=== PATIENT | male | born 1985 | race Caucasian/White ===

== ENCOUNTER → 2020-05-16 10:31 | Outpatient (CLI) | payer OTHER, SELFPAY ==
[2020-05-16 11:16] LABS: Influenza A - CEPHEID Flu A NEGATIVE (NEGATIVE); Influenza B - CEPHEID Flu B NEGATIVE (NEGATIVE)
[2020-05-16 11:35] LABS: COVID19 -Nasal RAPID Negative (Negative)
== END ==
PROVIDERS: Visit Provider Physician Assistant
DX: Z20.822 Contact with and (suspected) exposure to COVID-19 (principal); R11.10 Vomiting, unspecified
CPT/HCPCS: 87502; 87635

== ENCOUNTER → 2020-05-16 11:02 | Outpatient (CLI) | payer OTHER, SELFPAY | PROVIDERS: Referring Provider Physician Assistant; Visit Provider Physician Assistant | DX: R10.31 Right lower quadrant pain (principal) ==

== ENCOUNTER 2020-08-01 12:09 | Emergency (ER) | payer OTHER, SELFPAY ==
[2020-08-01 12:24] VITALS: BP 142/90; PULSE 68; RESP 16; TEMP 36.9; O2SAT 99; BMI 23.1
--- NOTE | 2020-08-01 12:26 | DI.RAD.S_ITS ---
PROCEDURE: XR CHEST 1V INDICATIONS: fall trauma TECHNIQUE: One view of the chest was acquired. COMPARISON: None. FINDINGS: Surgical changes and devices: None. Lungs and pleura: Lungs are clear. No pleural effusions or pneumothorax. Mediastinum: Mediastinal contours appear normal. Heart size is normal. Bones and chest wall: No suspicious bony lesions. Overlying soft tissues appear unremarkable. IMPRESSION: No evidence acute pulmonary process. Dictated by: Artemio Merlos M.D. on 08/01/2020 at 13:00 Approved by: Artemio Merlos M.D. on 08/01/2020 at 13:01
--- NOTE | 2020-08-01 12:26 | DI.CT.S_ITS ---
PROCEDURE: CT HEAD/BRAIN WO CON INDICATIONS: fall +LOC TECHNIQUE: Noncontrast 4.5 mm thick angled axial sections acquired from the foramen magnum to the vertex, with coronal and sagittal reformats. For radiation dose reduction, the following was used: automated exposure control, adjustment of mA and/or kV according to patient size. COMPARISON: None. FINDINGS: Image quality: Excellent. CSF spaces: Basal cisterns are patent. No extra-axial fluid collections. Ventricles are normal in size and shape. Brain: No midline shift. No intracranial masses or hemorrhage. Dasilva-white matter interface is normal. Skull and face: Calvarium and visualized facial bones are intact, without suspicious lesions. Sinuses: Visualized sinuses and mastoids are clear. IMPRESSION: No CT evidence of acute intracranial pathology. No skull fracture. Dictated by: Clifton Jay M.D. on 08/01/2020 at 12:02 Approved by: Clifton Jay M.D. on 08/01/2020 at 12:02
--- NOTE | 2020-08-01 12:26 | DI.RAD.S_ITS ---
PROCEDURE: XR SHOULDER LT MIN 2V INDICATIONS: fall pain TECHNIQUE: 5 views of the shoulder were acquired. COMPARISON: None. FINDINGS: Bones: No fractures or dislocations. No suspicious bony lesions. Visualized ribs appear intact. Soft tissues: No suspicious soft tissue calcifications. IMPRESSION: No evidence acute bony abnormality of the left shoulder. If clinical suspicion and/or symptoms persist, further assessment with repeat plain films, or advanced imaging (e.g., CT, MRI, or bone scan) may be helpful for further assessment. Dictated by: Artemio Merlos M.D. on 08/01/2020 at 13:01 Approved by: Artemio Merlos M.D. on 08/01/2020 at 13:02
--- NOTE | 2020-08-01 12:29 | DI.CT.S_ITS ---
PROCEDURE: CT CERVICAL SPINE WO CON INDICATIONS: fall trauma TECHNIQUE: Noncontrast 3 mm thick sections acquired from the skull base to the T4 level. Sagittal and coronal reformats were then constructed. For radiation dose reduction, the following was used: automated exposure control, adjustment of mA and/or kV according to patient size. COMPARISON: None. FINDINGS: Image quality: Excellent. Bones: No fractures or dislocations. Visualized superior ribs are intact. Mild degenerative endplate changes are noted at C5-6 and C6-7 levels. Soft tissues: Prevertebral soft tissues are normal in thickness. No paravertebral hematomas. No apical pneumothoraces. IMPRESSION: No acute cervical spine fracture or dislocation. Mild degenerative disc disease at C5-6 and C6-7 levels. Dictated by: Clifton Jay M.D. on 08/01/2020 at 11:57 Approved by: Clifton Jay M.D. on 08/01/2020 at 11:59
--- NOTE | 2020-08-01 13:28 | ED.FALL ---
HPI - Fall General Chief Complaint: Trauma Stated Complaint: hit head, fall at work, neck tenderness Time Seen by Provider: 08/01/20 12:26 Source: patient Mode of arrival: Ambulatory Limitations: no limitations History of Present Illness HPI Narrative: Patient is a 35-year-old male who presents after a fall off the boat possibly 6 ft. He landed on his left side had positive LOC. He is not on any anti-platelet or anticoagulation medications. Complaining of headache and left shoulder pain. He denies any nausea vomiting numbness tingling or weakness. He is ambulatory after the event. He was actually seen initially at the walk-in clinic and sent to the ED for further evaluation. Related Data Previous Rx's Medication Instructions Recorded promethazine 25 mg tablet 25 mg PO Q6H PRN #20 tab 05/16/20 Review of Systems Review of Systems ROS Unobtainable: All systems reviewed & are unremarkable except as noted in HPI and below Constitutional Constitutional: Denies chills, Denies fever(s), Denies lethargy and Denies weakness Eyes Eyes: Denies blurry vision and Denies diplopia Cardiovascular Cardiovascular: Denies chest pain, Denies irregular heart rhythm, Denies lightheadedness, Denies palpitations, Denies dyspnea, Denies dyspnea on exertion and Denies orthopnea Respiratory Respiratory: Denies cough, Denies dyspnea, Denies dyspnea on exertion and Denies wheezing Musculoskeletal Musculoskeletal: Denies back pain and Reports arthralgias (Left shoulder) Integumentary/Breasts Skin/Breast: Denies pruritus, Denies erythema, Denies rash and Denies wounds Neurologic Neurologic: Denies weakness Comments: +LOC Endocrine Endocrine: Denies palpitations Allergic/Immunologic Allergic/Immunologic: Denies wheezing Patient History Medical History No active medical problems Social History Smoking Status: Unknown if ever smoked Smoking Status: Unknown if ever smoked Exam Initial Vital Signs Initial Vital Signs: Vital Signs Temperature 98.4 F 08/01/20 12:24 Pulse Rate 68 08/01/20 12:24 Respiratory Rate 16 08/01/20 12:24 Blood Pressure 142/90 H 08/01/20 12:24 Pulse Oximetry 99 08/01/20 12:24 GENERAL: Well-appearing, well-nourished and in no acute distress. HEENT: Head normocephalic, left parietal abrasion noted no laceration, EOMI, pupils reactive, face symmetric, NECK: Supple, full range of motion, no step-offs, nontender on vertebrae-collar placed in ED CARDIOVASCULAR: Regular rate and rhythm without murmurs, rubs or gallops. RESPIRATORY: Breath sounds equal bilaterally, no wheezes rales or rhonchi. No crepitations, no subcutaneous air, chest is nontender, no signs of trauma ABDOMEN: Soft, nontender. Normoactive bowel sounds all 4 quadrants. No guarding or rebound. BACK: Nontender vertebrae, no step-offs, no contusions PELVIS: stable. EXTREMITIES: Normal range of motion, no clubbing or edema. Right upper extremity: Within normal limits Left upper extremity: Tender over shoulder and clavicle but clavicle has no step-offs. He actually seems to be more tender over the scapula area Right lower extremity: Within normal limits Left lower extremity:Within normal limits NEUROLOGICAL: Cranial nerves II through XII grossly intact. Normal gait and speech. SKIN: Abrasion left shoulder Scores GCS [place] coma scale eye opening: Spontaneous [place] coma scale verbal response: Orientated [place] coma scale motor response: Obey commands [place] coma scale total score: 15 Course Orders Ordered: ED Orders 08/01/20 12:26 CT head/brain wo con Stat XR chest 1V Stat XR shoulder LT min 2V Stat 08/01/20 12:29 CT cervical spine wo con Stat Vital Signs Vital signs: Vital Signs - 8 hr 08/01/20 12:24 08/01/20 13:51 Temperature 98.4 F Pulse Rate 68 70 Respiratory Rate 16 16 Blood Pressure 142/90 H 152/81 H Pulse Oximetry 99 99 MDM - Fall Imaging Data CT scan - head: Radiologist's Impression: PROCEDURE: CT HEAD/BRAIN WO CON INDICATIONS: fall +LOC TECHNIQUE: Noncontrast 4.5 mm thick angled axial sections acquired from the foramen magnum to the vertex, with coronal and sagittal reformats. For radiation dose reduction, the following was used: automated exposure control, adjustment of mA and/or kV according to patient size. COMPARISON: None. FINDINGS: Image quality: Excellent. CSF spaces: Basal cisterns are patent. No extra-axial fluid collections. Ventricles are normal in size and shape. Brain: No midline shift. No intracranial masses or hemorrhage. Dasilva-white matter interface is normal. Skull and face: Calvarium and visualized facial bones are intact, without suspicious lesions. Sinuses: Visualized sinuses and mastoids are clear. IMPRESSION: No CT evidence of acute intracranial pathology. No skull fracture. Dictated by: Clifton Jay M.D. on 08/01/2020 at 12:02 CT - cervical spine: Radiologist's Impression: PROCEDURE: CT CERVICAL SPINE WO CON INDICATIONS: fall trauma TECHNIQUE: Noncontrast 3 mm thick sections acquired from the skull base to the T4 level. Sagittal and coronal reformats were then constructed. For radiation dose reduction, the following was used: automated exposure control, adjustment of mA and/or kV according to patient size. COMPARISON: None. FINDINGS: Image quality: Excellent. Bones: No fractures or dislocations. Visualized superior ribs are intact. Mild degenerative endplate changes are noted at C5-6 and C6-7 levels. Soft tissues: Prevertebral soft tissues are normal in thickness. No paravertebral hematomas. No apical pneumothoraces. IMPRESSION: No acute cervical spine fracture or dislocation. Mild degenerative disc disease at C5-6 and C6-7 levels. Dictated by: Clifton Jay M.D. on 08/01/2020 at 11:57 Extremity x-ray #1: Radiologist's Impression: PROCEDURE: XR SHOULDER LT MIN 2V INDICATIONS: fall pain TECHNIQUE: 5 views of the shoulder were acquired. COMPARISON: None. FINDINGS: Bones: No fractures or dislocations. No suspicious bony lesions. Visualized ribs appear intact. Soft tissues: No suspicious soft tissue calcifications. IMPRESSION: No evidence acute bony abnormality of the left shoulder. If clinical suspicion and/or symptoms persist, further assessment with repeat plain films, or advanced imaging (e.g., CT, MRI, or bone scan) may be helpful for further assessment. Dictated by: Artemio Merlos M.D. on 08/01/2020 at 13:01 Chest x-ray: Radiologist's Impression: ROCEDURE: XR CHEST 1V INDICATIONS: fall trauma TECHNIQUE: One view of the chest was acquired. COMPARISON: None. FINDINGS: Surgical changes and devices: None. Lungs and pleura: Lungs are clear. No pleural effusions or pneumothorax. Mediastinum: Mediastinal contours appear normal. Heart size is normal. Bones and chest wall: No suspicious bony lesions. Overlying soft tissues appear unremarkable. IMPRESSION: No evidence acute pulmonary process. Dictated by: Artemio Merlos M.D. on 08/01/2020 at 13:00 MDM Narrative Medical decision making narrative: Patient is ambulatory in the ED C-spine is cleared after CT. He has a mild abrasion on his head and left shoulder abrasion. He likely has a concussion. Discussed with him warning signs and when to return to ED. Discharge Plan Departure Patient Disposition: Home Clinical Impression: Concussion Qualifiers: Encounter type: initial encounter Loss of consciousness presence/duration: with LOC of 30 min or less Qualified Code(s): S06.0X1A - Concussion with loss of consciousness of 30 minutes or less, initial encounter Instructions: Concussion Activity Restrictions/Additional Instructions: *You have been diagnosed with concussion *What to do: At this time you likely have concussion from your fall. Expect to be sore tomorrow and you may develop a headache. *Continue to take medications as directed Tylenol 500 mg every 6 hours if needed for [id number] pain Ibuprofen 800 mg every 8 hours if needed for [id number] pain *Follow up with your primary care provider in 2-3 days *Return to ER if you should have worsening headache, persistent vomiting, weakness numbness or tingling or any new, worsening or concerning symptoms Prescriptions: No Action promethazine 25 mg tablet 25 mg PO Q6H PRN (Reason: nausea and vomiting) Qty: 20 RF: 0 Referrals: Miscellaneous,Doctor, [Primary Care Provider] - Stand Alone Forms: Work Release Note
[2020-08-01 13:51] VITALS: BP 152/81; PULSE 70; RESP 16; O2SAT 99
== END 2020-08-01 13:54 | disposition home or self-care (01) ==
PROVIDERS: Emergency Provider Emergency Medicine
DX: S06.0X1A Concussion with loss of consciousness of 30 minutes or less, initial encounter (principal); M25.512 Pain in left shoulder; W19.XXXA Unspecified fall, initial encounter; Y99.0 Civilian activity done for income or pay
CPT/HCPCS: 36415; 70450; 71045; 72125; 73030; 99285